=== PATIENT | male | born 1990 | race Caucasian/White ===

== ENCOUNTER 2020-04-29 19:56 | Emergency (ER) | payer BC, SELFPAY ==
[2020-04-29] VITALS (11 sets, daily range): BP systolic 129–145; BP diastolic 80–99; PULSE 85–100; RESP 13–18; TEMP 36.7; O2SAT 96–100; BMI 31.6
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
--- NOTE | 2020-04-29 20:39 | PC.NURSE ---
on phone with dr morales
--- NOTE | 2020-04-29 20:55 | XR_ITS ---
PROCEDURE: XR FOREARM RT 2V Referring Doctor: Antony Quiroz Patient Age:30Y CLINICAL INDICATION: post reduction COMPARISON: CR XR FOREARM RT 2V from 04/29/2020 FINDINGS: . Portable AP and lateral views of the right forearm obtained with low-density or fiberglass splint or cast now in place. Again view the fracture at distal radius which is occurred just beyond the junction of middle and distal 3rd of distal radial shaft again noted. The angulation has been of significantly improved a since initial study. There is greater than 1 bone with dorsal displacement of the distal fracture fragment on the lateral view with scant over-ride. Only slight radial tilt of the distal fracture fragment on the frontal projection. IMPRESSION: A post reduction images of the right forearm. There has is been correction of the prominent anterior angulation. .. Greater than 1 bone with posterior displacement distal fracture fragment with scant override is noted. Dictated by: Rk James MD 04/30/2020 14:15 Rk James MD in [place] 04/30/2020 14:15
--- NOTE | 2020-04-29 21:11 | PC.NURSE ---
rad at bedside for post reduction films
--- NOTE | 2020-04-29 21:19 | HMH.EDUPEXT ---
ED Disposition Clinical Impression: Forearm fracture Qualifiers: Encounter type: initial encounter Fracture type: closed Laterality: right Qualified Code(s): S52.91XA - Unspecified fracture of right forearm, initial encounter for closed fracture Disposition: Home, Self-Care Condition on Discharge: Good Instructions: DI for Forearm Fracture Additional Instructions: call ortho on saturday Prescriptions: Hydrocod/Acet 5/325 mg [Hinckley 5/325mg tablet] 1 tab PO Q6HP PRN #12 tab PRN Reason: Moderate To Severe Pain Prescription Printed Referrals: Geneva Hawley [Primary Care Provider] - Morenita Cho MD [Physician] - - Critical Care Critical Care Time: No Attestation: On 04/29/20, the high probability of a clinically significant, sudden or life threatening deterioration of the following system(s) required my full and direct attention, intervention and personal management. The time I documented below is in addition to time spent performing reported procedures but includes the following listed in this critical care notation. Medical Decision Making - Medical Records Medical records reviewed: Yes: I reviewed the patient's medical records. - Fernando Inquiry Pt receiving controlled substance: No Vital Signs: 04/29/20 20:10 04/29/20 20:12 04/29/20 20:55 Temperature 98.1 F 98.1 F Temperature Source Oral Oral Pulse Rate [Left Brachial] 90 90 85 Respiratory Rate 17 17 17 Blood Pressure [Left Arm] 135/96 H 135/96 H 129/89 Blood Pressure Mean [Left Arm] 109 109 102 Blood Pressure Source [Left Arm] Automatic Cuff Automatic Cuff Automatic Cuff Blood Pressure Position [Left Arm] Sitting Sitting Sitting 02 Sat by Pulse Oximetry 99 99 99 Oxygen Delivery Method Room Air Room Air Room Air Oxygen Flow Rate (LPM) 04/29/20 20:58 04/29/20 21:02 Temperature Temperature Source Pulse Rate [Left Brachial] 88 88 Respiratory Rate 16 14 Blood Pressure [Left Arm] 131/80 137/97 H Blood Pressure Mean [Left Arm] 97 110 Blood Pressure Source [Left Arm] Automatic Cuff Automatic Cuff Blood Pressure Position [Left Arm] Sitting Sitting 02 Sat by Pulse Oximetry 100 99 Oxygen Delivery Method Room Air Nasal Cannula Oxygen Flow Rate (LPM) 2 - Lab Data Lab results reviewed: Yes: I reviewed the patient's lab results. Orders (Tests/Meds): ED MEDICATIONS Generic Name Dose Route Start Last Admin Trade Name Mira PRN Reason Stop Dose Admin Sodium Chloride 1,000 mls @ 999 mls/hr 04/29/20 20:45 04/29/20 21:27 Sod Chlor 0.9% 1000ml Bag IV 04/29/20 21:45 999 mls/hr .Q1H1M MIMA Administration Discontinued Medications Generic Name Dose Route Start Last Admin Trade Name Mira PRN Reason Stop Dose Admin Acetaminophen/Codeine Phosphate 1 tanner 04/29/20 21:22 04/29/20 21:24 Acetaminophen 300mg W/Codeine 30mg Take Home Pack (6) PO 04/29/20 21:23 1 tanner ONCE ONE Administration Fentanyl Citrate 250 mcg 04/29/20 20:35 04/29/20 21:28 Fentanyl 250mcg/5ml Vial IV 04/29/20 20:36 100 mcg ONCE ONE Administration Ketorolac Tromethamine 30 mg 04/29/20 21:22 04/29/20 21:24 Ketorolac 30mg/Ml Vial IV 04/29/20 21:23 30 mg ONCE ONE Administration Midazolam HCl 5 mg 04/29/20 20:39 04/29/20 21:27 Midazolam Hcl 1mg/1ml 5ml Vial IV 04/29/20 20:40 5 mg ONCE ONE Administration Oxycodone/Acetaminophen 2 each 04/29/20 21:24 04/29/20 21:25 Oxycodone 10mg W/Apap 325mg Tablet PO 04/29/20 21:25 2 each ONCE ONE Administration ORDERS Category Date Time Status XR forearm RT 2V Stat Exams 04/29/20 20:14 Taken XR forearm RT 2V Stat Exams 04/29/20 20:55 Ordered XR wrist LT min 3V Stat Exams 04/29/20 20:14 Taken CMP [Comprehensive Metabolic Panel] Stat Lab 04/29/20 20:44 Ordered Complete Blood Count Auto Diff Stat Lab 04/29/20 20:44 Ordered - Radiology Data #1 Image(s): Forearm, Wrist Image Reviewed: Yes I reviewed the patient's radiology image Preliminary Findin
== END 2020-04-29 21:45 | disposition home or self-care (01) ==
PROVIDERS: Emergency Provider Emergency Medicine; PCP Nurse Practitioner Family
DX: S52.501A Unspecified fracture of the lower end of right radius, initial encounter for closed fracture (principal); V86.56XA Driver of dirt bike or motor/cross bike injured in nontraffic accident, initial encounter; Y92.89 Other specified places as the place of occurrence of the external cause
CPT/HCPCS: 29125; 25605; 73090; 73110; 96365; 96375; 99285

== ENCOUNTER → 2020-05-02 10:52 | Outpatient (CLI) | payer BC, SELFPAY ==
[2020-05-02 11:09] LABS: Basophils % 0.6 % (0.1-2.0); Eosinophils # 0.1 K/mm3 (0.0-0.4); Hematocrit 48.1 % (42.0-52.0); Hemoglobin 15.5 g/dL (14.1-18.0); Lymphocytes # 1.5 K/mm3 (0.7-4.5); Lymphocytes % 23.1 % (10-50); Mean Corpuscular HGB Conc 32.3 g/dL (31.8-35.4); Mean Corpuscular Hemoglobin 29.2 pg (27.0-31.2); Mean Corpuscular Volume 90.3 fl (80-94); Mean Platelet Volume 7.5 fl (7.4-10.4); Monocytes # 0.3 K/mm3 (0.1-1.0); Monocytes % 4.8 % (1.7-9.3); Neutrophils # 4.6 K/mm3 (1.8-7.8); Neutrophils % 69.5 % (37.0-80.0); Platelet Count 240 K/mm3 (142-424); Red Blood Count 5.33 M/mm3 (4.60-6.20); Red Cell Distribution Width 12.2 % (11.5-17.5); White Blood Count 6.6 K/mm3 (4.8-10.8)
[2020-05-02 11:52] LABS: Chloride 104 mmol/L (98-107)
[2020-05-02 11:53] LABS: Potassium 4.5 mmoL/L (3.5-5.1); Sodium 140 mmol/L (136-145)
[2020-05-02 11:55] LABS: Alanine Aminotransferase 26 U/L (12-78); Alkaline Phosphatase 61 U/L (38-126); Aspartate Amino Transferase 34 U/L (17-59); Bilirubin,Total 0.6 mg/dl (0.2-1.3); Blood Urea Nitrogen 15 mg/dl (9-20); Estimated Glomerular Filt Rate 98 ml/min (>60); GFR (African American) 119 ML/MIN (>60)
[2020-05-02 11:56] LABS: Albumin Level 4.5 g/dl (3.5-5.0); Albumin/Globulin Ratio 1.3 (1.1-1.8); Anion Gap 12.5 mEq/L (5-15); Calcium 9.6 mg/dl (8.4-10.2); Carbon Dioxide 28 mmol/L (22.0-30.0); Globulin 3.5 g/dL (1.3-3.2); Glucose 99 mg/dl (74-100)
[2020-05-02 12:43] LABS: Coronavirus 19 IgG Antibody Negative (Negative); Coronavirus 19 IgM Antibody Negative (Negative)
== END ==
PROVIDERS: Visit Provider Orthopaedic Surgery
DX: Z01.89 Encounter for other specified special examinations (principal); S52.371A Galeazzi's fracture of right radius, initial encounter for closed fracture
CPT/HCPCS: 36415; 80053; 85025; 86328

== ENCOUNTER 2020-05-03 07:28 | Day surgery (SDC) | payer BC, SELFPAY ==
[2020-05-02 15:08] VITALS: BMI 31.5
[2020-05-03] VITALS (24 sets, daily range): BP systolic 120–147; BP diastolic 69–90; PULSE 68–94; RESP 12–20; TEMP 36.1–43; O2SAT 88–99
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
--- NOTE | 2020-05-03 11:02 | HMH.ANESCL ---
[facility] Anesthesia Checklist - Structural Data Admitted From: Home Planned Operative Procedure/s: orif r radius Consent for Planned Operative Procedure(s) Verified: Yes - Additional verifications Anesthesia Reactions: No Hx Blood Transfusions: No Blood Transfusion Reaction: No - Airway Assessment C-Spine Mobility Assessed: Yes TMJ Mobility Assessed: Yes Dentition: Poor Dentition - Neurological Assessment Level of Consciousness: Awake, Alert, Appropriate - Anesthesia Plan Anesthesia Risk discussed: Yes Anesthesia Plan: Verified ASA Class: II Anesthesia Type: General w/block - Preoperative Comments Pre-Operative Comments: supra clav block exp to pt,incl riske,pt agrees to proceed [facility] History I have reviewed the patient's past medical history: Yes Medical History: Denies:: Cancer, Diabetes Mellitus Type 1, Diabetes Mellitus Type 2, Internal Pacemaker, MRSA, Seizures *Have you ever received a pneumonia vaccine?: No *Have you received a flu vaccine this season?: No Other Medical History: Denies: Blood Transfusion Reaction Anesthesia experience/problems:: none Laterality Cases: Left: Other Other Surgeries: Yes: Hernia Repair. No: Pacemaker Amputation: No Fractures: Yes - *Social History Last grade of school completed: Advanced degree Smoking Status: Never smoker Alcohol Intake: current Alcohol Intake Frequency:: a few times a week Substance Use Type: denies use *Occupational Status:: unemployed Housing: house Household Members: spouse, family *Travel in the last 8 weeks: None Family Hx:: No significant family history
--- NOTE | 2020-05-03 12:46 | HMH.ANESI ---
[facility] Anesthesia Record Part I Intake, IV Amount: 2,200 Estimated blood loss (mL): 0 Urine output (mL): 0 Blood Pressure: 128/78 SaO2: 94 Pulse Rate: 85 Respiratory Rate: 12 Temperature: 97.4 F Patient is:: Awake, Stable Stable to PACU at:: 12:45
--- NOTE | 2020-05-03 14:36 | PC.NURSE ---
1258-pt becoming more awake, reports c/o nausea and vomiting bile like emesis at this time, medicated per SEP w/Zofran 4mg IVP, changed gowns and applied cool wash cloth for comfort, vss, will continue to monitor 1319-BRYCE Capps at bedside, notified that pt reports increased pain rating 10/10 w/out ease from pain medication given at this point, BRYCE Capps ordered for patient to have Dilaudid 0.5mg IVP xonce now and he was going to give additional nerve block at bedside 1324-pt continues to report pain to right wrist 10/10 with no ease, additional Dilaudid 0.5mg IVP given for pain control as ordered per BRYCE Capps, BRYCE Capps and BRYCE Rodgers at bedside at this time, time out for procedure performed prior verifying pt and correct procedure, all agree at bedside involved and additional nerve block began a this time per BRYCE Capps and BRYCE Rodgers, vss, will continue to monitor 1349-pt drinking water at this time, denies nausea, reports he does not feel like nerve block working and continues to report pain to right wrist 10/10-being medicated per SEP, vss, will continue to monitor 1418-spoke with BRYCE Capps-notified that pt reports he can only feel nerve block in elbow but continues to wiggle fingers and reports pain to right wrist 8/10 at this time-BRYCE Capps ordered to give pt Dilaudid 0.5mg IVP to equal a total of 2mg IVP administered in PACU and to loosen the abdi bandage to splint as ordered per Dr. Cho 1422-abdi wrap loosened around splint, pt reports pain is easing and rates 6/10, periodically dozing off, vss, detailed report called to IZAIAH Harman 1426-pt transported to post op via stretcher w/da rails up at this time, left in care of IZAIAH Harman, vss, pt stable
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
[2020-05-04 10:20] VITALS: BP 129/69; PULSE 86; TEMP 36.6
--- NOTE | 2020-05-04 10:20 | HMH.ANESII ---
[facility] Anesthesia Record Part II Discharge Time: 14:24 Destination: Surgical Day Care (OP Surgery) PACU nurse assessment reviewed?: Yes Patient Condition:: Good Anesthesia Complications:: None Swallowing reflex intact?: Yes Cyanosis?: No Blood Pressure: 129/69 Pulse Rate: 86 Temperature: 97.9 F Mental Status: Alert & Oriented Pain level:: 6 Nausea and/or vomitting:: None Intake, IV Amount: 0
== END 2020-05-03 15:07 | disposition home or self-care (01) ==
LOC: OR 07:30
PROVIDERS: PCP Nurse Practitioner Family; Visit Provider Orthopaedic Surgery
PROC: (CPT 25515; principal; 2020-05-03 09:00)
DX: S52.371A Galeazzi's fracture of right radius, initial encounter for closed fracture (principal); V28.0XXA Motorcycle driver injured in noncollision transport accident in nontraffic accident, initial encounter
CPT/HCPCS: 25526; 73090; 96374; C1713; C1776; J2405

== ENCOUNTER → 2020-05-16 10:43 | Outpatient (CLI) | payer BC, SELFPAY ==
--- NOTE | 2020-05-16 10:47 | XR_ITS ---
PROCEDURE: XR FOREARM RT 2V CLINICAL INDICATION: ORIF RT radial shaft FX COMPARISON: CR XR FOREARM RT 2V from 04/29/2020 CR XR FOREARM RT 2V from 04/29/2020 FINDINGS: Status post ORIF of the fracture at the junction of the mid distal 3rd of the radius. Bone plate and multiple cortical screws are present with good alignment of the fracture fragment. Fracture line is still visible. There is ulnar minus variant. The joint spaces are well-preserved. No significant degenerative/arthritic changes. No erosive changes evident. Other findings:None. IMPRESSION: Good alignment status post ORIF distal radial fracture with ulnar minus variant Dictated by: Shakir Godwin MD 05/16/2020 11:06 Shakir Godwin MD in [place] 05/16/2020 11:06
== END ==
PROVIDERS: PCP Nurse Practitioner Family; Visit Provider Orthopaedic Surgery
DX: S52.91XA Unspecified fracture of right forearm, initial encounter for closed fracture (principal)
CPT/HCPCS: 73090

== ENCOUNTER → 2020-06-03 13:41 | Outpatient (CLI) | payer BC, SELFPAY ==
--- NOTE | 2020-06-03 13:44 | XR_ITS ---
PROCEDURE: XR FOREARM RT 2V CLINICAL INDICATION: s/p radial shaft FX Follow-up fracture COMPARISON: CR XR FOREARM RT 2V from 04/29/2020 CR XR FOREARM RT 2V from 04/29/2020 DX XR FOREARM RT 2V from 05/16/2020 FINDINGS: There is a volar bone plate overlying the junction of the mid distal shaft of the radius with good alignment of the fracture fragments. Fracture line is still visible. Two cortical screws are present at the fracture. The joint spaces are well-preserved. No significant degenerative/arthritic changes. No erosive changes evident. Other findings:None. IMPRESSION: No change good alignment status post ORIF radial fracture Dictated by: Shakir Godwin MD 06/03/2020 14:22 Shakir Godwin MD in [place] 06/03/2020 14:22
== END ==
PROVIDERS: PCP Nurse Practitioner Family; Visit Provider Orthopaedic Surgery
DX: S52.371A Galeazzi's fracture of right radius, initial encounter for closed fracture (principal); S52.90XA Unspecified fracture of unspecified forearm, initial encounter for closed fracture
CPT/HCPCS: 73090

== ENCOUNTER → 2020-06-24 11:11 | Outpatient (CLI) | payer BC, SELFPAY ==
--- NOTE | 2020-06-24 11:14 | XR_ITS ---
PROCEDURE: XR FOREARM RT 2V CLINICAL INDICATION: s/p ORIF R radial shaft fracture Follow-up surgery COMPARISON: CR XR FOREARM RT 2V from 04/29/2020 CR XR FOREARM RT 2V from 04/29/2020 XA XR FOREARM RT 2V from 05/03/2020 DX XR FOREARM RT 2V from 05/16/2020 CR XR FOREARM RT 2V from 06/03/2020 FINDINGS: Status post ORIF fracture of the mid distal 3rd of the radius with a volar bone plate present and multiple cortical screws with good alignment of the fracture fragments There is a small zone of lucency around the transverse screws at the fracture site. This is of questionable clinical significance and follow-up is suggested. Other findings:None. IMPRESSION: No change good alignment status post ORIF right radial fracture. Dictated by: Shakir Godwin MD 06/24/2020 13:38 Shakir Godwin MD in [place] 06/24/2020 13:38
== END ==
PROVIDERS: PCP Nurse Practitioner Family; Visit Provider Orthopaedic Surgery
DX: S52.371A Galeazzi's fracture of right radius, initial encounter for closed fracture (principal); S52.90XA Unspecified fracture of unspecified forearm, initial encounter for closed fracture
CPT/HCPCS: 73090

== ENCOUNTER → 2020-08-05 13:15 | Outpatient (CLI) | payer BC, SELFPAY ==
--- NOTE | 2020-08-05 13:21 | XR_ITS ---
PROCEDURE: XR FOREARM RT 2V CLINICAL INDICATION: s/p ORIF R radial shaft fracture: dos 05/03/20 Follow-up surgery COMPARISON: 06/24/2020 FINDINGS: There is an anterior bone plate stabilizing the fracture at the junction of the mid distal 3rd the radius with good alignment and developing callus formation. The joint spaces are well-preserved. No significant degenerative/arthritic changes. No erosive changes evident. Other findings:None. IMPRESSION: Good alignment healing radial fracture status post ORIF Dictated by: Shakir Godwin MD 08/05/2020 14:12 Shakir Godwin MD in [place] 08/05/2020 14:12
== END ==
PROVIDERS: PCP Nurse Practitioner Family; Visit Provider Orthopaedic Surgery
DX: S52.371A Galeazzi's fracture of right radius, initial encounter for closed fracture (principal)
CPT/HCPCS: 73090

== ENCOUNTER → 2020-09-16 13:01 | Outpatient (CLI) | payer BC, SELFPAY ==
--- NOTE | 2020-09-16 13:06 | XR_ITS ---
PROCEDURE: XR FOREARM RT 2V CLINICAL INDICATION: s/p ORIF R radial shaft fracture Follow-up ORIF COMPARISON: DX XR FOREARM RT 2V from 05/16/2020 CR XR FOREARM RT 2V from 06/03/2020 CR XR FOREARM RT 2V from 06/24/2020 CR XR FOREARM RT 2V from 08/05/2020 FINDINGS: There is a volar bone plate at the junction of the mid distal 3rd of the right radius stabilizing radial fracture which is in good alignment. Fracture line is still visible laterally. Callus formation noted medially. Overall no significant change from 08/05/2020. The joint spaces are well-preserved. No significant degenerative/arthritic changes. No erosive changes evident. Other findings:None. IMPRESSION: Good alignment status post ORIF radial fracture with persistent fracture line noted laterally. Dictated by: Shakir Godwin MD 09/16/2020 15:17 Shakir Godwin MD in [place] 09/16/2020 15:17
== END ==
PROVIDERS: PCP Nurse Practitioner Family; Visit Provider Orthopaedic Surgery
DX: S52.371A Galeazzi's fracture of right radius, initial encounter for closed fracture (principal); S52.91XA Unspecified fracture of right forearm, initial encounter for closed fracture
CPT/HCPCS: 73090